=== PATIENT | male | born 1945 ===

== ENCOUNTER 2023-01-25 05:55 | Day surgery (SDC) | payer OTHER ==
[2023-01-18 09:59] LABS: PH,URINE 7.5 (5.0-8.0); URINE APPEARANCE Clear; URINE BILIRRUBIN Negative (NEGATIVE); URINE BLOOD Negative; URINE COLOR Yellow; URINE GLUCOSE Negative (NEGATIVE); URINE LEUKOCYTE Negative; URINE NITRATE Negative; URINE PROTEIN Negative (NEGATIVE); URINE UROBILINOGEN 0.2 E.U./dl
[2023-01-18 10:06] LABS: URINE RBC 3.4 uL (0.0-20.8)
[2023-01-18 10:21] LABS: HEMATOCRIT 43.3 % (39.0-48.0); MEAN CELL VOLUME 95.1 fL (80.0-100.00); MEAN CORPUSCULAR HGB CONC 34.7 g/dl (32.0-36.0); PLATELET COUNT 177 K/uL (150-450); RED BLOOD COUNT 4.55 M/uL (4.00-6.00); RED CELL DISTRIBUTION WIDTH 13.7 % (11.5-14.5)
[2023-01-18 10:46] LABS: INR 1.1; PARTIAL THROMBOPLASTIN TIME 26.5 SECONDS (22.0-34.0); PROTHROMBIN TIME 11.5 SECONDS (9.0-11.5)
[2023-01-18 10:49] LABS: URINE BACTERIA 1.2 uL (0.0-1933); URINE EPITHELIAL CELLS 0.1 uL (0.0-38.8); URINE WBC 0.4 uL (0.0-23.2)
[2023-01-18 10:58] LABS: CALCIUM 9.5 mg/dL (8.5-10.1); CREATININE SERUM 1.04 mg/dL (0.70-1.30); GFR 69.25; POTASSIUM 3.58 mEq/L (3.5-5.1)
[2023-01-25] MEDS ORDERED: PERCOCET 5-3251 EACH PO (14:21)
[2023-01-25] MEDS ORDERED: NEURONTIN300 MG PO (14:23)
[2023-01-25] MEDS ORDERED: POLY119PG PO (14:23)
== END 2023-01-25 16:35 | disposition home or self-care (01) ==
LOC: CIR.AMB 05:55
PROVIDERS: ATTEND Surgery
DX: K40.90 Unilateral inguinal hernia, without obstruction or gangrene, not specified as recurrent (principal); Z88.6 Allergy status to analgesic agent; Z20.822 Contact with and (suspected) exposure to COVID-19; E11.9 Type 2 diabetes mellitus without complications; E78.5 Hyperlipidemia, unspecified; I10 Essential (primary) hypertension; E03.9 Hypothyroidism, unspecified
CPT/HCPCS: 49650; C1781